=== PATIENT | female | born 1940 | race Native Hawaiian/Other Pacific Islander ===

== ENCOUNTER 2022-02-03 17:09 | Emergency (ER) | payer OTHER ==
[~2022-02-03] VITALS: Ht 175.3 cm; Wt 70.3 kg
[2022-02-03 17:09] VITALS: BP 129/76; TEMP 98.2
[2022-02-03 17:38] LABS: POTASSIUM 3.3 mmol/L (3.6-5.2)
[2022-02-03 17:40] LABS: PLATELET COUNT 564 K/uL (152-353)
[2022-02-03] MEDS ORDERED: LIPITOR40 MG PO (20:03)
[2022-02-03] MEDS ORDERED: DULO30CA PO (20:04)
[2022-02-03] MEDS ORDERED: FURO40TA93 PO (20:05)
[2022-02-03] MEDS ORDERED: ESOMEPRAZOLE MA40 M1 PO (20:05)
[2022-02-03] MEDS ORDERED: EUTHYROX50 MCG PO (20:06)
[2022-02-03] MEDS ORDERED: METO25TA2 PO (20:06)
[2022-02-03] MEDS ORDERED: MONT10TA PO (20:07)
[2022-02-03] MEDS ORDERED: [UNRECOGNIZED DRUG - CODE] PO (20:08)
[2022-02-03] MEDS ORDERED: WARF4TAB7 PO (20:08)
[2022-02-03] MEDS ORDERED: FLUTMIS6 INH (20:10)
== END 2022-02-03 18:30 | disposition still patient (30) ==
LOC: ED 17:09
PROVIDERS: Emergency Medicine Emergency Medical Services
DX: Z00.8 Encounter for other general examination (principal); F91.8 Other conduct disorders; J90 Pleural effusion, not elsewhere classified; E87.6 Hypokalemia; Z11.52 Encounter for screening for COVID-19
CPT/HCPCS: 80053; 85027; 87635; 93005; 99283; U0003